=== PATIENT | female | born 2000 | race Caucasian/White ===

== ENCOUNTER 2019-04-09 19:35 | Inpatient (IN) | payer MEDICAID, SELFPAY ==
[2019-04-09] VITALS (27 sets, daily range): BP systolic 0–144; BP diastolic 0–89; PULSE 100–124; RESP 16–18; TEMP 36.8–37.1; BMI 28.1
[2019-04-09 21:15] LABS: Basophils % 0.2 %; Eosinophils # 0.1 10^3/uL (0.0-0.8); Eosinophils % 0.5 %; Hematocrit 37.6 % (37.0-47.0); Hemoglobin 12.7 g/dL (11.5-15.3); Lymphocytes # 2.9 10^3/uL (1.5-6.5); Mean Corpuscular HGB Conc 33.8 g/dL (30.0-36.0); Mean Corpuscular Hemoglobin 33.1 pg (28.0-34.0); Mean Corpuscular Volume 97.9 fL (81-99); Mean Platelet Volume 10.7 fL (7.4-10.4); Monocytes # 0.9 10^3/uL (0.2-0.9); Monocytes % 7.5 %; Neutrophils # 8.2 10^3/uL (1.8-8.0); Neutrophils % 67.5 %; Nucleated Red Blood Cells % 0 %; Platelet Count 250 10^3/cmm (130-400); Red Blood Count 3.84 10^6/uL (4.1-5.3); Red Cell Distribution Width 13.4 % (12.1-15.1); White Blood Count 12.2 10^3/uL (4.5-13.0)
[2019-04-09] MEDS: lactated ringers 1,000 ML 999 ML IV (21:35)
--- NOTE | 2019-04-09 22:04 | US_ITS ---
WS: [id number] ULTRASOUND OB LIMITED TECHNIQUE: Limited ultrasound examination of the fetus. CLINICAL INFORMATION: HEART TONES COMPARISON: None. FINDINGS: Cervix measures 3.4 cm Single interuterine gestation. presentation is cephalic Placental location is anterior. Placenta grade: 2 heart rate 176 BPM. Normal ASHLI Gestational age 40 weeks 4 days Biophysical profile 8 out of 8. breathin movement: 2 tone: 2 Amniotic fluid: 2 IMPRESSION Normal biophysical profile 8 out of 8
[2019-04-09 22:33] LABS: Amphetamines Screen Urine Negative (Negative); Barbiturates Screen Urine Negative (Negative); Benzodiazepines Screen Urine Negative (Negative); Cocaine Screen Urine Negative (Negative); Opiate Screen Urine Negative (Negative); PCP Screen Urine Negative (Negative); THC Screen Urine Negative (Negative)
[2019-04-09 22:42] LABS: Bilirubin Urine Neg (NEGATIVE); Blood Urine Neg (Negative); Glucose Urine UA Norm (Normal); Ketones Urine Negative (Negative); Leukocyte Esterase Urine Trace (Negative); Nitrate Urine Negative (Negative); Protein Urine Neg (Negative); Specific Gravity, Urine 1.015 (1.005-1.030); Urine Color Yellow (Yellow); Urobilinogen Urine Norm (Negative); pH Urine 6.5 (5-7)
--- NOTE | 2019-04-09 22:43 | PM.OBGYHP ---
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 She presents at 40-4/7 weeks gestation for cervical ripening and induction of labor secondary to postdates status. Her course has been uncomplicated with the exception of group B strep bacteriuria which was treated earlier in the and necessitates intrapartum antibiotic prophylaxis. Present Details : 1 Para: 0 Review of Systems Const: Denies: fever or chills Card: Denies: chest pain Resp: Denies: shortness of breath or wheezing : Denies: vaginal bleeding, vaginal discharge or pelvic pain Psych: Reports: anxiety Medications/Allergies Home Medications Medication Instructions Recorded Confirmed Last Taken Type [id number] fumarate-FA tab PO 04/09/19 04/08/19 22:30 History [] Allergies Allergy/AdvReac Type Severity Reaction Status Date / Time No Known Allergies Allergy Verified 03/22/19 10:04 [facility] DIESEL ENGINE MECHANIC Statuses (acute, chronic, etc) shown below reflect problem list status as previously entered and may not be historically accurate Medical History (Updated 04/09/19 @ 23:15 by Darlene Arcos MD) Group B streptococcal bacteriuria (Acute) Family History (Updated 04/09/19 @ 23:01 by Darlene Arcos MD) Mother Lung disease Asthma Family/Other Spina bifida Social History (Updated 04/09/19 @ 22:50 by Darlene Arcos MD) Smoking and tobacco status: never smoked Second hand smoke exposure: No Alcohol intake: never Substance/Drug Use: never Adopted: No Caregiver/support person: Yes Lives independently: Yes Household members: significant other Marital status: Single Number of children: 0 Number of grandchildren: 0 Highest education level completed: High School Graduate Current occupational status: employed Current occupation: Part-time [employer] History History 1 Term 0 Miscarriages/Ectopic 0 0 Living Children 0 Vitals/I&O/Wt Last Vital Signs Temp 98.2 F 04/09/19 21:56 Pulse 110 H 04/09/19 22:30 Resp 16 04/09/19 21:56 BP 137/85 04/09/19 22:30 04/09/19 04/09/19 04/09/19 06:59 14:59 22:59 Intake Total 416.25 / 416.25 Balance 416.25 / 416.25 Weight last 48 hrs Weight 67.585 kg Weight 67.585 kg Physical Exam Narrative: EXAM NARRATIVE: For complete physical examination please refer to her record. Const: COMMON NORMALS: no apparent distress, oriented x3, no limitations, healthy appearing, alert and well nourished : MANUAL OB EXAM: dilated fingertip (Per staff upon arrival), effaced (40%), station high and other (Vertex) Neuro: COMMON NORMALS: oriented x3 SENSORIUM/ORIENTATION: Yes alert Psych: COMMON NORMALS: mental status grossly normal, thought process normal, cooperative, affect normal and speech normal SPEECH: Yes normal speech MOOD & AFFECT: Yes anxious THOUGHT PROCESS: normal thought process Data : 04/09/19 20:15 Other Labs: Blood type: O+ Antibody screen: Negative Hemoglobin/hematocrit/platelets: 13.0/30 7.9/303, 28-week recheck on hemoglobin 11.2 Urine culture: Positive for group B strep (treated at the time) Hepatitis B surface antigen: Negative RPR: Negative Hepatitis C antibody: Negative Rubella: Immune HIV screen: Negative GC/Chlamydia: Negative/negative Cystic fibrosis carrier screen: Counseled and declined Quad screen: Negative 1 hour GTT: 112 Group B strep culture: Not done secondary to indication for treatment with the group B strep bacteriuria A&P Assessment and plan (1) Post-term , 40-42 weeks of gestation: Status: Acute Code(s): O48.0 - Post-term (2) Encounter for induction of labor: I had initially planned Cytotec cervical ripening. However, heart tones revealed some late decelerations initially which resolved with maternal position changes. Then there was a shift in the baseline to tachycardia. Patient has maintained good heart tone variability and has had accelerations as well. Mother was afebrile but was somewhat tachycardic secondary to anxiety. She is not anemic, and her vital signs are otherwise stable. A urine drug screen was also ordered to round out the evaluation. She has had some uterine activity as frequent as every 2 minutes. However, she denies feeling pain but rather tightening. A biophysical profile was ordered which was scored as 8 out of 8 very quickly. At this time we will proceed with cervical ripening via low-dose continuous Pitocin infusion starting at 1 milliunit/min and advancing to 2 milliunits/min as tolerated. Status: Acute Code(s): Z34.90 - Encounter for supervision of normal , unspecified, unspecified trimester (3) Group B Streptococcus carrier state affecting : Will begin intrapartum antibiotic prophylaxis with either spontaneous rupture of membranes or onset of active labor. Status: Acute Code(s): O99.820 - Streptococcus B carrier state complicating Attestations Medical Necessity Statement*: As patient is postdates status and has had features consistent with a category 2 heart rate tracing, and she has not yet begun labor let alone deliver, she will require inpatient hospitalization. Coding Level of Care Code Acute Marketing Analytics Specialist for [employer] Fwd Diagnoses Post-term , 40-42 weeks of gestation O48.0 Encounter for induction of labor Z34.90 Group B Streptococcus carrier state affecting O99.820
[2019-04-09 22:45] LABS: Add Urine Culture? No; Bacteria Urine 2+; Coarse Granular Casts Urine 0-4 /lpf
[2019-04-09] MEDS: oxytocin 30 UNIT/500 ML BAG IV (23:04)
[2019-04-10] VITALS (125 sets, daily range): BP systolic 0–159; BP diastolic 0–93; PULSE 81–130; RESP 16–18; TEMP 36.9–37.1; O2SAT 93–98
[2019-04-10] MEDS: dextrose 5%-lactated ringers 1,000 ML 125 ML IV ×2 (02:05→19:43)
[2019-04-10] MEDS: lactated ringers 1,000 ML 999 ML IV ×2 (05:19→19:43)
[2019-04-10] MEDS: acetaminophen 325 mg Tablet 650 MG PO (07:25)
--- NOTE | 2019-04-10 07:29 | P.PN_ITS ---
CARDIOLOGY CONSULTANTS Subjective Subjective: Interval history: Patient had a fluid bolus last evening and had 1 to 2 milliunits/min of Pitocin continuously throughout the late night and ferry engineer hours. A few hours into the 2 milliunits/min infusion rate of the Pitocin patient had a decrease in variability of the heart rate and some questionable decelerations and the heart rate. This resolved with discontinuation of the Pitocin. Patient stated that she was able to feel the contractions and rates them at a 3 out of 10 but was able to get rest. She continues to contract on her own albeit infrequently and irregularly. Labor: Pain Control: tolerating well Dilation (cm): 1 Effacement (%): 40 Station: -3 Amniotic Membrane Status: Intact Monitor Mode: External Contraction Pattern: Irregular Contraction Intensity: Moderate Status: Category l Vitals/I&O/Wt Last Vital Signs Temp 98.5 F 04/10/19 04:46 Pulse 109 H 04/10/19 07:21 Resp 16 04/10/19 04:46 BP 120/77 04/10/19 07:21 04/09/19 04/10/19 04/10/19 22:59 06:59 14:59 Intake Total 510.00 / 510.00 760.334 / 1270.334 Balance 510.00 / 510.00 760.334 / 1270.334 Weight last 48 hrs Weight 67.585 kg Weight 67.585 kg Data : 04/09/19 20:15 A&P Additional A&P Information We discussed having her eat some breakfast and shower if she would like. Given the category 1 monitoring tracing, we may proceed with a dose of Cytotec 25 mcg placed vaginally 1 time. She will be monitored for a period of time and then may ambulate in the halls if heart rate tracing is reassuring. We discussed the mechanism of action of the Cytotec and potential side effects. We also discussed timing for initiation of antibiotics for group B strep prophylaxis. Attestations Medical Necessity Statement*: As patient has not yet delivered and has a post dates status she will require continued hospitalization. Coding Level of Care Code Acute Self Pay Specialist for [employer]
--- NOTE | 2019-04-10 07:50 | PC.NURSE ---
Patient IV covered so patient can shower.
[2019-04-10] MEDS: miSOPROStol 100 mcg tablet 25 MCG VAGINAL ×2 (08:56→13:26)
[2019-04-10] MEDS: fentaNYL 50 mcg/mL INJ 2mL IVP (18:57)
--- NOTE | 2019-04-10 19:20 | PM.OBGYPN ---
EMERGENCY COMMUNICATIONS DISPATCHER Subjective Subjective: Interval history: Patient had a dose of Cytotec this morning vaginally and then had a second dose of Cytotec vaginally at 1:00 this afternoon. After the second dose she was patti every minute to minute and a half 4 hours after it was placed. She was rating her pain at a 7 out of 10. After the first dose of Cytotec she was 1-1/2 cm dilated and 50% effaced and still -3 station. After the second dose of Cytotec she had made no cervical change. heart rate tracing has remained category 1 all day. Labor: Dilation (cm): 1 Effacement (%): 50 Station: -3 Amniotic Membrane Status: Intact Monitor Mode: External Contraction Pattern: Regular Contraction Intensity: Moderate Status: Category l Vitals/I&O/Wt Last Vital Signs Temp 98.4 F 04/10/19 16:39 Pulse 93 04/10/19 17:32 Resp 16 04/10/19 18:57 BP 131/75 04/10/19 17:32 04/10/19 04/10/19 04/10/19 06:59 14:59 22:59 Intake Total 760.334 / 2200.223 4751.333 / 1608.333 Balance 760.334 / 0377.521 6576.333 / 1608.333 Weight last 48 hrs Weight 67.585 kg Weight 67.585 kg Physical Exam Narrative: EXAM NARRATIVE: heart tones have been category 1 with moderate variability, accelerations, no decelerations and a normal baseline. Contractions have most recently been every 1 to 2 minutes and increasing in intensity with the patient rating them a 7 out of 10. : MANUAL OB EXAM: dilated 2 cm, effaced 75%, station -2 and other (Vertex, not ballotable) Data : 04/09/19 20:15 A&P Assessment and plan (1) Rupture of membranes with meconium present: Patient cervical exam done 4 hours after placement of the second dose of Cytotec revealed cervix to be 1-1/2 cm dilated, 50% effaced, -3 station, vertex and with a medium to firm consistency cervix. Since she was patti too frequently to place another dose of Cytotec and was not ripe enough to try escalating dose of Pitocin, we considered placement of a cervical bulb. Family members expressed concern as to why she was not being taken to section at this point in time for failure to progress. Both her nurse and I explained that cervical ripening, especially in a primiparous patient can take quite a bit of time and that there was no sign of baby's intolerance to the cervical ripening or contractions at this time. We explained that sections have risks as well and that patient has not had an adequate trial of labor to determine whether or not she would dilate. After a detailed discussion on the cervical bulb and the procedure of placing it, patient was given the option of receiving a fluid bolus and taking a break to allow her contractions to either get stronger on their own enough to cause cervical dilation or to have another dose of Cytotec if they ever became less frequent versus placement of the cervical bulb. Patient chose placement of the cervical bulb. She requested IV pain medication prior to the placement of the cervical bulb, so a 25 mcg dose of IV fentanyl was given. An hour and a half had elapsed since she had had a cervical exam, and her contractions had continued at a 7 out of 10 no less frequent than every 3 minutes with most of them being every minute to minute and a half. Recheck of her cervix when preparing for cervical bulb placement found it to be 2 cm dilated, soft, 75% effaced, -2 station and vertex and not ballotable. At that time we discussed amniotomy with commencement of group B strep protocol for intrapartum antibiotic prophylaxis as well as preparation for an epidural. Patient was agreeable to amniotomy, and it was performed and productive of a moderate amount of meconium stained fluid. Patient is currently receiving her fluid bolus en route to an epidural. Status: Acute Code(s): O77.0 - Labor and delivery complicated by meconium in amniotic fluid Attestations Medical Necessity Statement*: As patient has not yet delivered and is postdates and has undergone amniotomy, she will continue to need inpatient hospitalization. Coding Level of Care Code Acute Senior Relationship Manager for [employer] Diagnoses Rupture of membranes with meconium present O77.0
[2019-04-10] MEDS: ampicillin 2,000 MG in sodium chloride 0.9% (plus) 50 ML 100 MG IV (19:42)
[2019-04-10] MEDS: ampicillin 1,000 MG in sodium chloride 0.9% (plus) 50 ML 100 MG IV (23:50)
[2019-04-11] VITALS (34 sets, daily range): BP systolic 0–150; BP diastolic 0–87; PULSE 87–133; RESP 16; TEMP 36.4–37.2; O2SAT 95–98
--- NOTE | 2019-04-11 03:51 | PM.DELIVERY ---
 Delivery Note: Date of delivery: 04/11/19 Pre-Delivery Course: Patient arrived the evening of 04/09/2019 for postdates cervical ripening and induction of labor at 40-4/7 weeks gestation. Patient had a few late decelerations shortly after arrival, and these resolved with maternal position changes. Nonetheless, that evening we proceeded with low-dose continuous Pitocin infusion for cervical ripening instead of Cytotec. After a few hours of the Pitocin at 2 milliunits/min there were some decelerations and potential shifts in the baseline heart rate which prompted discontinuation of the Pitocin and observation. Prior to starting the Pitocin patient had a biophysical profile which was 8 out of 8 fairly rapidly. Patient was 1 cm dilated and 40% effaced the morning of 04/10/2019. 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 At that point patient took a break and ate breakfast. She had a reassuring heart rate tracing, therefore, we proceeded with a 25 mcg dose of Cytotec vaginally. Her contractions increased in frequency and intensity, and she was 1-1/2 cm dilated and 50% effaced 4 hours after administration of the first dose of Cytotec. As her contractions were mild and at least 3 minutes apart we proceeded with a second dose of Cytotec 25 mcg vaginally. 4 hours after placement of that dose she was unchanged with a cervix 1-1/2 cm dilated, 50% effaced, medium consistency and -3 station. At this point we had discussed waiting to see if her contractions would become less frequent such that she could receive a third dose of Cytotec versus placement of a cervical bulb if contractions continued frequently without cervical change. Patient decided on the cervical bulb. Approximately an hour and a half had elapsed since cervical exam done 4 hours after placement of the second dose of Cytotec, and, upon reexamination just prior to placement of the cervical bulb, patient was found to be 2 cm dilated, 75% effaced and -2 station with the head not ballotable. At that time she underwent amniotomy which was productive of a moderate amount of meconium stained fluid. This was at 1908 on 04/10/2019. She requested an epidural, received it and became comfortable. Intrapartum antibiotic prophylaxis for the group B strep was begun shortly after amniotomy. Once she was comfortable and had had her Mcgregor catheter placed after the epidural, she was found to be 3 cm dilated, 75% effaced and -2 station. She was patti every 1-1/2 to 2 minutes on her own. She was able to rest for brief periods of time and was then 5 cm at approximately 2315 and was then 7 cm dilated at 0045 on 04/11/2019. She was then found to be completely dilated at 2:30 AM. She had received at least 2 doses of antibiotics per the group B strep protocol prior to delivery. Delivery: We began the active portion of the second stage of her labor at 2:35 AM, and after a 59-minute active portion of the second stage patient delivered a viable female . Head was straight OA. Bulb suctioning was done upon delivery of baby's head and then of baby's body. Baby had a nuchal cord x1 which was loose and easily manually reduced on the perineum. Baby was placed on maternal abdomen while the cord was quickly clamped by myself and cut by the father the baby. Cord blood was obtained. Baby was taken to the warmer for DeLee suctioning which was productive of 4 mL's of meconium fluid. Gentle traction was placed on the cord, and intravenous Pitocin was begun in routine doses. The placenta delivered at 3:38 AM and appeared to be intact and was meconium stained. Fundal massage revealed an initially boggy uterus which responded to the fundal massage and Pitocin. Cervix and perineum were inspected, and a distal posterior vaginal laceration which was in the midline and first-degree was noted. She required no repairs and was otherwise intact. Post-Delivery Status: Baby had an initial of 5 at 1 minute and then had an of 10 at 5 minutes and remained at a 10 at 10 minutes. She required only DeLee suctioning. Mother had a slight increase in her bleeding, and her fundus was found to be somewhat boggy. Fundal massage resulted in a firmer uterus and expulsion of a few small clots. We then gave 800 mcg of Cytotec rectally in addition to the intravenous Pitocin. Mother and baby were stable. EBL approximately 300 mL. A&P Assessment and plan (1) Rupture of membranes with meconium present: Status: Acute Code(s): O77.0 - Labor and delivery complicated by meconium in amniotic fluid (2) Normal vaginal delivery of first : Routine orders Status: Acute Code(s): O80 - Encounter for full-term uncomplicated delivery (3) Obstetric vaginal laceration without perineal laceration: No repair needed Status: Acute Code(s): O71.4 - Obstetric high vaginal laceration alone Coding Level of Care Code Acute Technology Project Manager for [employer] Diagnoses Rupture of membranes with meconium present O77.0 Normal vaginal delivery of first O80 Obstetric vaginal laceration without perineal laceration O71.4
[2019-04-11] MEDS: miSOPROStol 200 mcg Tablet 800 MCG PR (03:52)
[2019-04-11] MEDS: benzocaine-menthol 78 gm Canister 1 SPRAY TOPICAL (06:59)
[2019-04-11] MEDS: lanolin oint 7 gm 1 APPLIC TOPICAL (06:59)
[2019-04-11] MEDS: prenatal vitamin Capsule 1 CAP PO (08:09)
[2019-04-11 17:23] LABS: Hematocrit 33.6 % (37.0-47.0); Hemoglobin 11.2 g/dL (11.5-15.3); Mean Corpuscular HGB Conc 33.3 g/dL (30.0-36.0); Mean Corpuscular Hemoglobin 32.7 pg (28.0-34.0); Platelet Count 217 10^3/cmm (130-400); Red Blood Count 3.43 10^6/uL (4.1-5.3); Red Cell Distribution Width 12.7 % (12.1-15.1); White Blood Count 17.2 10^3/uL (4.5-13.0)
--- NOTE | 2019-04-12 07:41 | P.DS_ITS ---
Discharge Providers DRAGLINE OPERATOR Date of Admission: 04/09/19 19:35 Date of Discharge: 04/12/19 Attending Provider at Admission: Darlene Arcos MD Attending Provider at Discharge: Darlene Arcos MD Primary Care Provider: Darlene Arcos MD Diagnoses at Discharge Discharge Diagnosis (1) Normal vaginal delivery of first : Status: Acute Problem details: day 1, ready for discharge to board with baby (2) Obstetric vaginal laceration without perineal laceration: Status: Acute Problem details: Patient reports no pain Reason for Visit Reason for Visit: Reason For Visit: labor Hospital Course Hospital Course: Patient arrived the evening of 04/09/2019 for cervical ripening and induction of labor. That evening and into the sample collector hours she received a low dose, 1 to 2 milliunits/min of Pitocin continuous infusion. The next morning she had had minimal cervical change. However, the monitoring strip was a category 1 and so we began Cytotec. After 2 doses of Cytotec patient was patti very irregularly and with increasing intensity. At 2 cm dilation and over 75% effaced -2 station we performed amniotomy which was productive of meconium fluid. 8-1/2 hours later after epidural anesthesia and an hour long active portion of the second stage of labor, she delivered a viable female weighing 7 pounds 5 ounces with Apgars of 5 at 1 minute and 10 from there on out. She had an intact perineum and sustained only a first- degree vaginal laceration which did not require repair. She had minimal to moderate blood loss. Postdelivery day 1 she is feeling better and is taking only ibuprofen for cramping, especially with breast-feeding. She plans to start the progesterone only pill after her visit in 6 weeks. Discharge Summary: As above, patient is ready for discharge. Information Peripartum Data: Infant Delivery Method: Vaginal Physical Exam Narrative: EXAM NARRATIVE: She is afebrile and is ambulating well Resp: COMMON NORMALS: normal respiratory effort and clear to auscultation bilaterally AUSCULTATION: clear to auscultation bilaterally Cardio: COMMON NORMALS: regular rate, regular rhythm and peripheral pulses 2+ throughout; negative for no murmurs and negative for no rub RATE: regular rate RHYTHM: regular rhythm PERIPHERAL PULSES: pulses 2+ throughout : UTERUS PALPATION: Yes other OB (Fundus is firm and 1 to 2 fingerbreadths below the umbilicus and is nontender) Extremity: COMMON NORMALS: normal to inspection and no clubbing, cyanosis or edema Psych: COMMON NORMALS: mental status grossly normal, thought process normal, cooperative, affect normal, speech normal and activity/motor behavior normal SPEECH: Yes normal speech THOUGHT PROCESS: normal thought process Urinary Catheter Management^: Mcgregor: Cath Placed During This Visit: no Discharge Data Data Completed and Pending: Completed Studies During Hospitalization Category Date Time Status US OB BPP w o NST 71263 Stat Ultrasound 04/09/19 22:04 Completed Labs from last 24 hours 04/11/19 16:38 WBC 17.2 H RBC 3.43 L Hgb 11.2 L Hct 33.6 L MCV 98.0 MCH 32.7 MCHC 33.3 RDW 12.7 Plt Count 217 MPV 10.0 Vitals: Last Vital Signs Temp 97.6 F 04/11/19 21:27 Pulse 87 04/11/19 21:27 Resp 16 04/11/19 21:27 BP 117/72 04/11/19 21:27 Pulse Ox 98 04/11/19 21:27 Discharge Plan Discharge Patient Disposition: Home, Self-Care Condition: Stable Prescriptions: New ibuprofen 800 mg Tablet 800 mg PO TID Qty: 40 RF: 0 Continued 28-800 mg-mcg Tablet 1 tab PO DAILY RF: 0 Discharge Orders: Discharge Order (Routine); Ordered 04/12/19 Ordered By: Darlene Arcos Referrals: Darlene Arcos MD [Primary Care Provider] - 6 Weeks Discharge Diet: Usual diet Discharge Activity: Resume usual activity Patient Instructions: OB Home Care Discharge Attestations DRAGLINE OPERATOR Time Spent in Discharge Care*: less than 30 min Specific Discharge Activities: Specific discharge activities: educating and/or supporting family/caregiver, documenting/other paperwork and evaluating patient/reviewing data Status at Discharge: Cognitive status at discharge: cognitively intact , Behavioral status at discharge: cooperative , Functional status at discharge: independent ambulation Overall status at discharge: patient is progressing back to baseline Coding Level of Care Code Acute Solar Photovoltaic Electrician for [employer] Fwd Diagnoses Normal vaginal delivery of first O80 Obstetric vaginal laceration without perineal laceration O71.4
[2019-04-12] MEDS: prenatal vitamin Capsule 1 CAP PO (10:33)
[2019-04-12] MEDS: docusate sodium 100 mg Capsule PO (10:34)
[2019-04-12 11:20] VITALS: BP 126/88; PULSE 86; RESP 17; TEMP 36.8; O2SAT 96
== END 2019-04-12 11:30 | disposition home or self-care (01) | DRG 806 ==
PROVIDERS: Admitting Provider Family Medicine; Family Provider Family Medicine; PCP Family Medicine; Visit Provider Family Medicine
DX: O48.0 Post-term pregnancy (principal); O71.4 Obstetric high vaginal laceration alone; Z37.0 Single live birth; Z3A.40 40 weeks gestation of pregnancy; O77.0 Labor and delivery complicated by meconium in amniotic fluid
CPT/HCPCS: 12345; 36415; 51702; 59409; 76819; 80307; 81001; 85025; 85027; 98960; A9270; J0290; J2795; J3010

== ENCOUNTER 2021-02-25 18:00 | Outpatient (CLI) | payer BC, SELFPAY ==
[2021-02-25 18:00] VITALS: BMI 24.9
[2021-02-25 18:19] VITALS: BP 112/76; PULSE 111
[2021-02-25 18:30] VITALS: RESP 16
[2021-02-25 19:44] VITALS: RESP 16
== END 2021-02-25 19:05 | disposition home or self-care (01) ==
LOC: OPOB 18:12 → OBGYN 18:13
PROVIDERS: Family Provider Family Medicine; PCP Family Medicine; Visit Provider Family Medicine
DX: O99.891 Other specified diseases and conditions complicating pregnancy (principal); R10.9 Unspecified abdominal pain
CPT/HCPCS: 99211

== ENCOUNTER 2021-04-07 11:05 | Outpatient (CLI) | payer BC, MEDICAID, SELFPAY ==
[2021-04-07 11:05] VITALS: BMI 26.6
[2021-04-07 11:28] VITALS: BP 128/67; PULSE 127
[2021-04-07 11:45] VITALS: BP 115/67; PULSE 114; RESP 17
[2021-04-07 11:59] VITALS: BP 115/62; PULSE 121
[2021-04-07 12:14] VITALS: BP 107/58; PULSE 109
[2021-04-07 12:29] VITALS: BP 108/60; PULSE 110
[2021-04-07 12:29] LABS: Glucose Urine UA Norm (Normal); Protein Urine Neg (Negative); Specific Gravity, Urine 1.015 (1.005-1.030); Urine Appearance Clear (CLEAR); Urine Color Yellow (Yellow); pH Urine 5 (5-7)
[2021-04-07 12:30] LABS: Bilirubin Urine Neg (Negative); Blood Urine Neg (Negative); Ketones Urine 1+ (Negative); Leukocyte Esterase Urine Negative (Negative); Nitrate Urine Negative (Negative); Urobilinogen Urine Norm (Negative)
[2021-04-07 12:31] LABS: WBC Urine 15-25 /hpf (0-5)
[2021-04-07 12:32] LABS: Add Urine Culture? No; Bacteria Urine 2+ /hpf; Squamous Epithelial Cell Urine 15-25 /hpf (0-5)
[2021-04-07 12:45] VITALS: BP 104/57; PULSE 105
== END 2021-04-07 12:55 | disposition home or self-care (01) ==
LOC: OPOB 11:09 → OBGYN 11:20
PROVIDERS: PCP Family Medicine; Visit Provider Family Medicine
DX: O26.899 Other specified pregnancy related conditions, unspecified trimester (principal); Z3A.00 Weeks of gestation of pregnancy not specified; M54.9 Dorsalgia, unspecified; R10.9 Unspecified abdominal pain
CPT/HCPCS: 81001; 99211

== ENCOUNTER 2021-05-26 05:05 | Outpatient (CLI) | payer BC, MEDICAID, SELFPAY ==
[2021-05-26] VITALS (39 sets, daily range): BP systolic 112–130; BP diastolic 65–74; PULSE 106–133; RESP 18; TEMP 36.3–36.8; O2SAT 93–98; BMI 28.9
[2021-05-26 05:30] LABS: Glucose Urine UA Norm (Normal); Ketones Urine Negative (Negative); Protein Urine Neg (Negative); Urine Appearance Hazy (CLEAR); Urine Color Yellow (Yellow); pH Urine 7 (5-7)
[2021-05-26 05:31] LABS: Bilirubin Urine Neg (Negative); Blood Urine Trace (Negative); Leukocyte Esterase Urine 2+ (Negative); Nitrate Urine Negative (Negative); Urobilinogen Urine Norm (Negative)
[2021-05-26 05:32] LABS: Add Urine Culture? No; Bacteria Urine 3+ /hpf; Squamous Epithelial Cell Urine 25-40 /hpf (0-5); WBC Urine >100 /hpf (0-5)
--- NOTE | 2021-05-26 05:43 | USR_ITS ---
PROCEDURE INFORMATION: Exam: US Retroperitoneal; Complete; Kidneys and Bladder Exam date and time: 05/26/2021 5:43 AM Age: 21 years old Clinical indication: Abdominal pain; Acute; ; Additional info: Left flank pain, blood in urine TECHNIQUE: Imaging protocol: Real-time ultrasound of the retroperitoneum with image documentation. Complete exam focused on the kidneys and bladder. COMPARISON: US OB >= 14 weeks fetus [id number] 03/09/2021 1:16 PM FINDINGS: Right kidney: Mild right hydronephrosis with mild to moderate left hydronephrosis and no renal stones. Possible related hydronephrosis from enlarged uterus. 11.7 x 5.7 x 5.0 cm right kidney with 0.7 cm right renal cortex. Left kidney: 12.0 x 4.9 x 7.1 cm left kidney with 1.5 cm left renal cortex. Aorta: The aorta is not visualized. Urinary bladder: Urinary bladder collapse and not visualized. Other findings: Cephalic presentation. US/US renal BI* [id number] IMPRESSION: 1. Mild right hydronephrosis with mild to moderate left hydronephrosis with no renal stones. Possible related hydronephrosis from enlarged uterus. 2. Cephalic presentation. 3. Urinary bladder collapsed and not visualized.
[2021-05-26] MEDS: lactated ringers 1,000 ML 999 ML IV (06:09)
[2021-05-26] MEDS: cefTRIAXone 1,000 MG in sodium chloride 0.9% (plus) 50 ML 100 MG IV (06:09)
[2021-05-26] MEDS: HYDROcodone-acetaminophen 5-325 mg Tablet 1 TAB PO (06:09)
== END 2021-05-26 07:38 | disposition home or self-care (01) ==
LOC: OPOB 05:06 → OBGYN 05:06
PROVIDERS: PCP Family Medicine; Visit Provider Family Medicine
DX: O26.899 Other specified pregnancy related conditions, unspecified trimester (principal); Z3A.00 Weeks of gestation of pregnancy not specified; R10.9 Unspecified abdominal pain
CPT/HCPCS: 59025; 76770; 81001; 99211; J0696

== ENCOUNTER 2021-05-27 21:49 | Observation (INO) | payer BC, MEDICAID, SELFPAY ==
[2021-05-27] VITALS (43 sets, daily range): BP systolic 110–140; BP diastolic 56–81; PULSE 122–208; RESP 18; TEMP 36.9; O2SAT 93–98; BMI 24.9
[2021-05-27] MEDS: ondansetron 2 mg/ML SDV 2 mL 4 MG IVP (21:40)
[2021-05-27] MEDS: HYDROcodone-acetaminophen 5-325 mg Tablet PO (21:47)
[2021-05-27 21:49] LABS: Basophils # 0.1 10^3/uL (0.0-0.1); Basophils % 0.3 %; Eosinophils # 0.1 10^3/uL (0.0-0.8); Eosinophils % 0.6 %; Hematocrit 33.9 % (37.0-47.0); Hemoglobin 11.2 g/dL (11.5-15.3); Lymphocytes % 6.5 %; Mean Corpuscular Hemoglobin 32.5 pg (28.0-34.0); Mean Corpuscular Volume 98.3 fl (81-99); Mean Platelet Volume 9.7 fL (7.4-10.4); Monocytes # 1.5 10^3/uL (0.2-0.9); Monocytes % 9.9 %; Neutrophils # 11.97 10^3/uL (1.8-7.7); Neutrophils % 82.2 %; Nucleated Red Blood Cells % 0 %; Platelet Count 216 10^3/cmm (130-400); Red Blood Count 3.45 10^6/uL (4.1-5.3); Red Cell Distribution Width 13.6 % (12.1-15.1); White Blood Count 14.6 10^3/uL (4.0-10.0)
[2021-05-27] MEDS: cefTRIAXone 1,000 MG in sodium chloride 0.9% (plus) 50 ML 100 MG IV (21:50)
[2021-05-27] MEDS: lactated ringers 1,000 ML 999 ML IV (21:50)
[2021-05-27 22:02] LABS: Add Urine Culture? No; Add Urine Microscopic? YES; Bacteria Urine 2+ /hpf; Bilirubin Urine Neg (Negative); Blood Urine Neg (Negative); Glucose Urine UA Norm (Normal); Ketones Urine Negative (Negative); Leukocyte Esterase Urine 2+ (Negative); Nitrate Urine Negative (Negative); Protein Urine Neg (Negative); RBC Urine 0-4 /hpf (0-2); Specific Gravity, Urine 1.015 (1.005-1.030); Urine Appearance SL Hazy (CLEAR); Urine Color Yellow (Yellow); Urobilinogen Urine 1 mg/dL (Negative); WBC Urine 40-55 /hpf (0-5); pH Urine 5 (5-7)
[2021-05-27 22:07] LABS: Alanine Aminotransferase 15 U/L (0-33); Albumin Level 3.7 g/dL (3.5-5.2); Alkaline Phosphatase 151 IU/L (35-105); Aspartate Amino Transferase 19 U/L (0-32); Blood Urea Nitrogen 4 mg/dL (6-20); Calcium 9.1 mg/dL (8.5-10.5); Carbon Dioxide 17 mmol/L (22-29); Chloride 105 mmol/L (98-107); Globulin 2.6 g/dL (1.3-4.6); Glomerular Filtration Rate 199.6 mL/min (90-130); Glucose 113 mg/dL (65-115); Osmolality Calculated 282 mOsm/kg (285-295); Sodium 137 mmol/L (136-145); Total Bilirubin 1.3 mg/dL (0.15-1.2); Total Protein 6.3 g/dL (6.6-8.7)
[2021-05-27 22:08] LABS: Anion Gap 18.8 (5-19); Potassium 3.8 mmol/L (3.5-5.1)
[2021-05-27] MEDS: terbutaline 1 mg/mL INJ 0.25 MG SUBCUT (23:11)
[2021-05-27] MEDS: TRAMadol 50 mg Tablet PO (23:12)
[2021-05-27] MEDS: lactated ringers 1,000 ML 150 ML IV (23:20)
[2021-05-28] VITALS (72 sets, daily range): BP systolic 91–144; BP diastolic 47–72; PULSE 121–145; RESP 18–20; TEMP 36.2–37.7; O2SAT 79–98
[2021-05-28] MEDS: promethazine 25 mg/mL SDV 1 mL IM ×2 (01:08→12:14)
[2021-05-28] MEDS: morphine 4 mg/mL SDV 1 mL IVP ×2 (01:11→04:14)
--- NOTE | 2021-05-28 01:14 | USR_ITS ---
PROCEDURE INFORMATION: Exam: US Retroperitoneal; Complete; Kidneys and Bladder Exam date and time: 05/28/2021 1:14 AM Age: 21 years old Clinical indication: Pain and condition or disease; Kidney or ureter condition; Hydronephrosis; Abdominal pain; Flank; Left; ; Additional info: Left hydronephrosis. Patient reportedly 32 weeks . TECHNIQUE: Imaging protocol: Real-time ultrasound of the retroperitoneum with image documentation. Complete exam focused on the kidneys and bladder. COMPARISON: US renal BI* [id number] 05/26/2021 6:01 AM FINDINGS: The right kidney measures 11.3 cm in length. The left kidney measures 10.9 cm in length. There is mild bilateral hydronephrosis, similar to slightly more prominent than on the recent exam. Significance uncertain. This appearance could be secondary to hydronephrosis of . Other possibilities might include pyelonephritis and occult ureteral calculi. Please correlate clinically. The ureters are poorly visualized, but the upper ureters are probably mildly prominent bilaterally. No definite perinephric fluid. The renal parenchymal thickness and echogenicity are within normal limits. There is no sonographically visible renal calculus, mass, or cyst. The urinary bladder is essentially empty, and cannot be adequately visualized/evaluated at this time. US/US renal BI* [id number] IMPRESSION: 1. Mild bilateral hydronephrosis, similar to slightly more prominent than on the recent exam. See above discussion. 2. Other details/findings discussed above.
[2021-05-28] MEDS: HYDROcodone-acetaminophen 5-325 mg Tablet PO ×3 (02:20→12:13)
[2021-05-28] MEDS: lactated ringers 1,000 ML 150 ML IV ×2 (06:43→15:02)
--- NOTE | 2021-05-28 09:01 | PM.HP ---
Providers/Chief Complaint Admitting Physician: Alesha Zavala MD Primary Care Provider: Darlene Arcos MD Chief Complaint: kidney issues History of Present Illness Molly Peres is a 21 year old female G2, P1 at 32 weeks gestation who presented complaining of left lower back pain radiating around to the front. She was rating the pain 10 out of 10 and did appear to be in distress upon admission. She had taken Tylenol at home with no relief. In the hospital her pain was not relieved by hydrocodone or tramadol. The pain was so bad it was causing her to vomit frequently, despite Zofran. She denied any diarrhea or constipation. She had a fever at home the day she came in and she measured at 102. She has been afebrile here since admission. She had similar symptoms the night before and presented to triage then. At that time her urinalysis did appear to be contaminated but also had greater than 100 white blood cells so she was given a dose of Rocephin to cover for infection. Her renal ultrasound showed mild bilateral hydronephrosis consistent with . She was given 1 dose of hydrocodone/APAP 5/325mg with good relief of her pain. She was discharged home with oral antibiotics. She presented back to L&D the next day (last night) with worsening pain, vomiting, and reported fever. Her WBC is not significantly elevated considering . Her repeat urinalysis still seemed contaminated but did have fewer white blood cells. Repeat renal ultrasound did not show much change in the bilateral hydronephrosis. This repeat ultrasound was done with the patient lying on her right side to take the uterus off the left/afffected side. No calculi were visualized. The pt was given IVF, norco and morphine overnight. I saw her in the morning and she was lightly sleeping but easily arousable and in obvious pain still. Review of Systems Const: Reports: fever(s) (at home yesterday); Denies: body aches Eyes: Denies: change in vision, blurry vision or blind spots ENMT: Denies: throat pain, enlarged tonsils, ear or mastoid pain or nasal congestion Card: Denies: chest pain, irregular heart rhythm or dyspnea on exertion Resp: Denies: dyspnea, productive cough or pain on inspiration GI: Reports: abdominal pain (LLQ), nausea and vomiting; Denies: hematemesis, diarrhea, constipation, hematochezia or melena : Reports: flank pain and pelvic pain; Denies: difficulty voiding, dysuria, urinary frequency or urinary urgency Musc: Reports: back pain; Denies: extremity pain or joint redness Skin/Breast: Denies: rash Neuro: Denies: Slurred speech present or seizure-like activity Psych: Denies: anxiety or depression Endo: Denies: polyuria Lizandro/Lymph: Denies: easy bruising or easy bleeding All/Imm: Denies: urticaria Medications/Allergies Home Medications Medication Instructions Recorded Confirmed Last Taken Type vit no.133-ferrous 1 tab PO DAILY 04/09/19 05/27/21 05/27/21 History fumarate 28 mg-folic acid 800 mcg tablet () Tylenol 500 mg PO PRN PRN 05/26/21 05/27/21 05/27/21 20:00 History Allergies Allergy/AdvReac Type Severity Reaction Status Date / Time No Known Allergies Allergy Verified 05/27/21 21:48 PFSH Acute PFSH: Medical History (Updated 05/28/21 @ 09:12 by Alesha Zavala MD) Group B streptococcal bacteriuria Family History (Updated 04/09/19 @ 23:01 by Darlene Arcos MD) Mother Lung disease Asthma Family/Other Spina bifida Social History (Updated 04/09/19 @ 22:50 by Darlene Arcos MD) Smoking and tobacco status: never smoked Second hand smoke exposure: No Alcohol intake: never Adopted: No Caregiver/support person: Yes Lives independently: Yes Household members: significant other Marital status: Single Number of children: 0 Number of grandchildren: 0 Highest education level completed: High School Graduate Current occupational status: employed Current occupation: Part-time [employer] Female Reproductive History: : 2 Vitals/I&O/Wt Last Vital Signs Temp 99.3 F 05/28/21 06:44 Pulse 130 H 05/28/21 08:50 Resp 19 H 05/28/21 04:14 BP 108/57 05/28/21 08:50 Pulse Ox 95 05/28/21 03:07 05/27/21 05/28/21 05/28/21 22:59 06:59 14:59 Intake Total 1050 / 1050 1500 / 2550 Output Total 750 / 750 Balance 1050 / 1050 750 / 1800 Weight last 48 hrs Weight 59.874 kg Physical Exam Const: GENERAL APPEARANCE: cooperative and in distress (tired with grimace); not comfortable HENMT: HEAD & SCALP: normal to inspection Eye: GENERAL EYE: appearance normal, both eyes and all related structures Resp: AUSCULTATION: clear to auscultation bilaterally Cardio: RATE: tachycardic RHYTHM: regular rhythm GI: PALPATION: Yes Soft to palpation (gravid), No Tenderness to palpation present (GI) and No Guarding due to palpation present (GI) Extremity: NARRATIVE EXTREMITY EXAM: No calf tenderness, no edema Data : 05/27/21 21:27 05/27/21 21:27 A&P Assessment and plan (1) Acute left flank pain: Status: Acute (2) Bilateral hydronephrosis: Given her degree of pain I suspect ureterolithiasis. There was nothing evident on renal ultrasound. Despite the Bessie and morphine the patient continues to be in a significant amount of pain. We will go ahead and order MRI for further evaluation. Consider urology consult pending MRI results. 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
--- NOTE | 2021-05-28 09:39 | MR_ITS ---
WS: [id number] MRI OF THE ABDOMEN WITHOUT GADOLINIUM ENHANCEMENT. INDICATION: RIGHT flank pain TECHNIQUE: Coronal T2, axial T2, axial T1, dual Echo, coronal 2-D fiesta, axial T1 fat sat, coronal S TIR. COMPARISON: Ultrasound May 28, 2021 FINDINGS: Somewhat limited examination due to motion artifact and lack of breath-hold technique Moderate bilateral hydronephrosis with ureterectasis extending into the pelvis. Pelvic varicosities. Ureterectasis likely due to ureteral compression from enlarged gravid uterus. Appendix is not visuali zed. Small and large bowel displaced peripherally due to late term gestation. No edema in the lower b ack or flank soft tissues. Slightly hydropic gallbladder. No visualized cholelithiasis. Incidental small RIGHT hepatic cyst. Gravid uterus compresses the IVC. Normal caliber abdominal aorta . Urine distended bladder. Normal portal vein and splenic vein. No inflammatory stranding or edema ab out the kidneys. Appendix is not visualized but no evidence of acute appendicitis. Urine distended bl adder.Umbilical cord loosely draped across the LEFT neck and crosses in front of the fetus. Rec ommend interval follow-up with ultrasound. anatomy appears grossly normal where visualized. No hydrocephalus. MR/MR abdomen wo con [id number] IMPRESSION: Somewhat limited examination due to motion artifact and lack of екатерина ath-hold technique 1. Symmetric moderate bilateral hydronephrosis with ureterectasis extending in to the pelvis likely due to pelvic ureteral compression from enlarged uterus. N o visualized obstructing calculi. 2. No perinephric edema or perinephric inflammatory stranding. 3. Appendix is not visualized but no evidence of acute appendicitis. 4. Gravid uterus with pelvic varicosities. 5. Fluid distended gallbladder otherwise normal in appearance. No visualized c holelithiasis 6. Umbilical cord loosely draped across the LEFT neck and crosses in fro nt of the fetus. Recommend interval follow-up with ultrasound.
[2021-05-28 10:20] LABS: Bilirubin Urine Neg (Negative); Blood Urine Neg (Negative); Glucose Urine UA Norm (Normal); Ketones Urine 3+ (Negative); Leukocyte Esterase Urine Negative (Negative); Nitrate Urine Negative (Negative); Protein Urine Neg (Negative); Urine Appearance Clear (CLEAR); Urine Color Yellow (Yellow); Urobilinogen Urine Norm (Negative); pH Urine 5 (5-7)
[2021-05-28 10:29] LABS: Add Urine Culture? No; Bacteria Urine TRACE /hpf; RBC Urine 0-4 /hpf (0-2); Squamous Epithelial Cell Urine 15-25 /hpf (0-5); WBC Urine 15-25 /hpf (0-5)
--- NOTE | 2021-05-28 19:01 | P.DS_ITS ---
Discharge Providers Date of Admission: 05/27/21 21:49 Date of Discharge: May 28, 2021 Attending Provider at Admission: Alesha Zavala MD Attending Provider at Discharge: Alesha Zavala MD Primary Care Provider: Darlene Arcos MD Diagnoses at Discharge Discharge Diagnosis (1) Ureterolithiasis during in third trimester: Status: Acute Reason for Visit Reason for Visit: kidney issues Hospital Course Hospital Course This is a 21-year-old at 32 weeks gestation who presented to labor and delivery with intractable left flank pain. She was admitted and started on IV fluids and pain medications. Renal ultrasound did not reveal much so she u nderwent MRI. No visible stone was identified. Due to her amount of pain it was suspected that she had a stone somewhere. Around 171 she passed a dark brown/black stone that measured about 5mm x 3mm. After that she felt much better. She was discharged home about 2 hours later. Physical Exam Narrative: Alert and oriented, tired appearing but more comfortable appearing. Left flank minimally tender. Discharge Data Studies Completed and Pending Completed Studies During Hospitalization Category Date Time Status MR abdomen wo con [id number] Routine MRI 05/28/21 09:39 Completed US renal BI* [id number] Stat Ultrasound 05/28/21 01:14 Completed Radiology Impressions Renal Ultrasound 05/28/21 01:14 IMPRESSION: 1. Mild bilateral hydronephrosis, similar to slightly more prominent than on the recent exam. See above discussion. 2. Other details/findings discussed above. Abdomen MRI 05/28/21 09:39 IMPRESSION: Somewhat limited examination due to motion artifact and lack of breath-hold technique 1. Symmetric moderate bilateral hydronephrosis with ureterectasis extending into the pelvis likely due to pelvic ureteral compression from enlarged uterus. No visualized obstructing calculi. 2. No perinephric edema or perinephric inflammatory stranding. 3. Appendix is not visualized but no evidence of acute appendicitis. 4. Gravid uterus with pelvic varicosities. 5. Fluid distended gallbladder otherwise normal in appearance. No visualized cholelithiasis 6. Umbilical cord loosely draped across the LEFT neck and crosses in front of the fetus. Recommend interval follow-up with ultrasound. Laboratory Results WBC 14.6 10^3/uL (4.0-10.0) H 05/27/21 21:27 RBC 3.45 10^6/uL (4.1-5.3) L 05/27/21: Hgb 11.2 g/dL (11.5-15.3) L 05/27/21: Hct 33.9 % (37.0-47.0) L 05/27/21: MCV 98.3 fl (81-99) 05/27/21: MCH 32.5 pg (28.0-34.0) 05/27/21: MCHC 33.0 g/dL (30.0-36.0) 05/27/21: RDW 13.6 % (12.1-15.1) 05/27/21: Plt Count 216 10^3/cmm (130-400) 05/27/21: MPV 9.7 fL (7.4-10.4) 05/27/21: Neut % (Auto) 82.2 % 05/27/21: Lymph % (Auto) 6.5 % 05/27/21: Garfield % (Auto) 9.9 % 05/27/21: Eos % (Auto) 0.6 % 05/27/21: Baso % (Auto) 0.3 % 05/27/21: Neut # (Auto) 11.97 10^3/uL (1.8-7.7) H 05/27/21: Lymph # (Auto) 1.0 10^3/uL (0.8-4.8) 05/27/21: Garfield # (Auto) 1.5 10^3/uL (0.2-0.9) H 05/27/21: Eos # (Auto) 0.1 10^3/uL (0.0-0.8) 05/27/21: Baso # (Auto) 0.1 10^3/uL (0.0-0.1) 05/27/21: Nucleated RBC % (auto) 0 % 05/27/21 Nucleated RBCs # 0.0 /100WBC 05/27/21: Sodium 137 mmol/L (136-145) 05/27/21: Potassium 3.8 mmol/L (3.5-5.1) 05/27/21 21: Chloride 105 mmol/L (98-107) 05/27/21 21: Carbon Dioxide 17 mmol/L (22-29) L 05/27/21 21: Anion Gap 18.8 (5-19) 05/27/21 21:27 BUN 4 mg/dL (6-20) L 05/27/21 21: Creatinine 0.4 mg/dL (0.5-0.9) L 05/27/21: GFR Calculation 199.6 mL/min (90-130) H 05/27/21 21: Glucose 113 mg/dL (65-115) 05/27/21: Calculated Osmolality 282 mOsm/kg (285-295) L 05/27/21: Calcium 9.1 mg/dL (8.5-10.5) 05/27/21: Total Bilirubin 1.3 mg/dL (0.15-1.2) H 05/27/21: AST 19 U/L (0-32) 05/27/21 21: ALT 15 U/L (0-33) 05/27/21 21: Alkaline Phosphatase 151 IU/L (35-105) H 05/27/21 21: Total Protein 6.3 g/dL (6.6-8.7) L 05/27/21 21: Albumin 3.7 g/dL (3.5-5.2) 05/27/21 21: Globulin 2.6 g/dL (1.3-4.6) 05/27/21: Urine Color Yellow (Yellow) 05/28/21 09:20 Urine Appearance Clear (CLEAR) 05/28/21 09:20 Urine pH 5 (5-7) 05/28/21 09:20 Ur Specific Monroe 1.020 (1.005-1.030) 05/28/21 09:20 Urine Protein Neg (Negative) 05/28/21 09:20 Urine Glucose (UA) Norm (Normal) 05/28/21 09:20 Urine Ketones 3+ (Negative) H 05/28/21 09:20 Urine Blood Neg (Negative) 05/28/21 09:20 Urine Nitrate Negative (Negative) 05/28/21 09:20 Urine Bilirubin Neg (Negative) 05/28/21 09:20 Urine Urobilinogen Norm mg/dL (Negative) 05/28/21 09:20 Ur Leukocyte Esterase Negative (Negative) 05/28/21 09:20 Urine RBC 0-4 /hpf (0-2) H 05/28/21 09:20 Urine WBC 15-25 /hpf (0-5) H 05/28/21 09:20 Ur Squamous Epith Cells 15-25 /hpf (0-5) H 05/28/21 09:20 Amorphous Sediment Not Reportable 05/28/21 09:20 Urine Bacteria Trace /hpf (NONE) 05/28/21 09:20 Vitals Last Vital Signs Temp 97.2 F L 05/28/21 15:00 Pulse 131 H 05/28/21 18:27 Resp 20 H 05/28/21 12:00 BP 122/57 05/28/21 18:27 Pulse Ox 95 05/28/21 03:07 Discharge Plan Discharge Patient Disposition: Home Condition: Stable Prescriptions: Continued 28-800 mg-mcg Tablet 1 tab PO DAILY 0RF Tylenol 500 mg PO PRN PRN (Reason: Pain) 0RF Discharge Orders: Discharge Order (Routine); Ordered 05/28/21 Ordered By: Alesha Zavala Referrals: Alesha Zavala MD [Physician] - (as previously scheduled) Discharge Diet: Usual diet Discharge Activity: Resume usual activity Activity Restrictions/Additional Instructions: Drink plenty of water. Avoid tea, soda, caffeine. Discharge Attestations Time Spent in Discharge Care*: less than 30 min Status at Discharge: Cognitive status at discharge: cognitively intact , Behavioral status at discharge: cooperative , Quality Metrics Clinical Quality Measures [ No reported AMI, CVA or VTE this stay] Coding Level of Care Code Acute Chg FW DC note Diagnoses Ureterolithiasis during in third trimester O99.891; N20.1
== END 2021-05-28 19:50 | disposition home or self-care (01) ==
LOC: OPOB 05-28 07:57
PROVIDERS: Admitting Provider Family Medicine; PCP Family Medicine; Visit Provider Family Medicine
DX: O26.833 Pregnancy related renal disease, third trimester (principal); Z3A.32 32 weeks gestation of pregnancy; N20.1 Calculus of ureter; N13.30 Unspecified hydronephrosis
CPT/HCPCS: 36415; 59025; 74181; 76770; 80053; 81001; 82365; 85025; 87491; 87591; 88300; 96372; 99211; G0378; J0696; J2270; J2405; J2550; J3105

== ENCOUNTER 2021-07-25 06:41 | Inpatient (IN) | payer OTHER, BC, SELFPAY ==
[2021-07-25] VITALS (84 sets, daily range): BP systolic 98–158; BP diastolic 52–99; PULSE 87–141; RESP 16–18; TEMP 36.2–37.5; O2SAT 96–99; BMI 30.2
[2021-07-25 07:46] LABS: Basophils % 0.2 %; Eosinophils # 0.2 10^3/uL (0.0-0.8); Eosinophils % 1.5 %; Hematocrit 35.6 % (37.0-47.0); Hemoglobin 11.8 g/dL (11.5-15.3); Lymphocytes # 2.6 10^3/uL (0.8-4.8); Lymphocytes % 24.9 %; Mean Corpuscular HGB Conc 33.1 g/dL (30.0-36.0); Mean Corpuscular Volume 96.5 fl (81-99); Mean Platelet Volume 9.9 fL (7.4-10.4); Monocytes % 9.1 %; Neutrophils # 6.78 10^3/uL (1.8-7.7); Nucleated Red Blood Cells % 0 %; Platelet Count 273 10^3/cmm (130-400); Red Blood Count 3.69 10^6/uL (4.1-5.3); Red Cell Distribution Width 14.4 % (12.1-15.1); White Blood Count 10.6 10^3/uL (4.0-10.0)
[2021-07-25] MEDS: dextrose 5%-lactated ringers 1,000 ML 999 ML IV (08:04)
[2021-07-25] MEDS: ampicillin 2,000 MG in sodium chloride 0.9% (plus) 50 ML 100 MG IV (08:04)
[2021-07-25] MEDS: oxytocin 30 UNIT/500 ML BAG IV (08:15)
--- NOTE | 2021-07-25 11:12 | PM.OPHPUD ---
Labor & Delivery H&P Update Date of Procedure: July 25, 2021 Date H&P Performed: 07/25/21 Admission Diagnosis: IUP at 41 weeks 1 day gestation Polyhydramnios Large for gestational age Group B strep positive Desired surgical sterilization Preop diagnosis: IUP Planned procedure: Expectant management of induction of labor
[2021-07-25] MEDS: lactated ringers 1,000 ML 999 ML IV ×2 (12:16→13:46)
[2021-07-25] MEDS: fentaNYL 50 mcg/mL INJ 2mL IVP (12:17)
[2021-07-25] MEDS: ampicillin 1,000 MG in sodium chloride 0.9% (plus) 50 ML 100 MG IV ×3 (13:48→22:15)
--- NOTE | 2021-07-25 13:53 | ANES.PREANE2 ---
Pre-Anesthetic Assessment Height/Weight: Height 1.55 m Weight 72.575 kg Temp Pulse Resp BP Pulse Ox 97.9 F 112 H 18 128/76 97 07/25/21 13:00 07/25/21 13:50 07/25/21 12:17 07/25/21 13:50 07/25/21 13:48 Preop Diagnosis: IUP epidural Was Beta Daisy taken within 24 hours: N/A Was Clonidine taken within 24 hours: N/A Last Intake: 08:00 Social No alcohol and No tobacco Exam alert, oriented x 3, clear to auscultation bilaterally and regular rate & rhythm Airway Submandibular: within normal limits Cervical ROM: within normal limits Mallampati: Class I Pulmonary Asthma CV/HEM None reported None reported Hepatic None reported GI None reported Metabolic None reported Musc/skel None reported Neuropsych None reported Anesthetic Plan ASA status: 2 Anesthesia: Regional (specify below) (epidural) Medications/Allergies Home Medications Medication Instructions Recorded Confirmed Last Taken Type vit no.133-ferrous 1 tab PO DAILY 04/09/19 07/25/21 07/24/21 History fumarate 28 mg-folic acid 800 mcg tablet () Tylenol 500 mg PO PRN PRN 05/26/21 07/25/21 05/27/21 20:00 History Allergies Allergy/AdvReac Type Severity Reaction Status Date / Time No Known Allergies Allergy Verified 07/25/21 09:25 Current Medications Generic Name Dose Route Start Last Admin Trade Name Freq PRN Reason Stop Dose Admin Fentanyl 25 - 100 mcg 07/25/21 07:35 07/25/21 12:17 Fentanyl 50 Mcg/Ml Inj 2ml IVP 25 mcg Q1H PRN Administration SEVERE PAIN Dextrose/Lactated Ringer's 1,000 mls @ 125 mls/hr 07/25/21 07:45 07/25/21 12:16 Dextrose 5%-Lactated Ringers IV 0 mls/hr .Q8H JOLEEN Infusion Ampicillin Sodium 1,000 mg/ 50 mls @ 100 mls/hr 07/25/21 11:45 07/25/21 13:48 Sodium Chloride IV 100 mls/hr Q4H JOLEEN Administration Protocol Ropivacaine 200 mg in 100 mls @ 13 mls/hr 07/25/21 07:45 07/25/21 13:47 Naropin Premix EPIDURAL 10 mls/hr .Q7H42M JOLEEN Administration Lactated Ringer's 1,000 mls @ 999 mls/hr 07/25/21 07:37 07/25/21 13:46 Lactated Ringers IV 999 mls/hr .Q1H1M PRN Administration See label comments Oxytocin 30 unit in 500 mls @ 1 mls/hr 07/25/21 07:45 07/25/21 12:54 Pitocin IV 7 milliunit/min .Q24H JOLEEN 7 mls/hr Titration Protocol 1 MILLIUNIT/MIN PFSH Anesthesia Medical History (Updated 05/29/21 @ 00:01 by ) Group B streptococcal bacteriuria Family History (Updated 04/09/19 @ 23:01 by Darlene Arcos MD) Mother Lung disease Asthma Family/Other Spina bifida Social History (Updated 04/09/19 @ 22:50 by Darlene Arcos MD) Smoking and tobacco status: never smoked Second hand smoke exposure: No Alcohol intake: never Adopted: No Caregiver/support person: Yes Lives independently: Yes Household members: significant other Marital status: Single Number of children: 0 Number of grandchildren: 0 Highest education level completed: High School Graduate Current occupational status: employed Current occupation: Part-time [employer] Female Reproductive History : 2 Data Anesthesia : 07/25/21 07:30 Short CBC 07/25/21 Range/Units 07:30 WBC 10.6 H (4.0-10.0) 10^3/uL Hgb 11.8 (11.5-15.3) g/dL Hct 35.6 L (37.0-47.0) % MCV 96.5 (81-99) fl Plt Count 273 (130-400) 10^3/cmm Neut % (Auto) 64.0 % Neut # (Auto) 6.78 (1.8-7.7) 10^3/uL Cardiac Studies: No Data to Display
--- NOTE | 2021-07-25 13:55 | ANES.PROC ---
Anesthesia Procedures Procedure/Date: 07/25/21 Epidural: Time Out Performed: Yes Consents Signed: Procedure Consent and NPO Consent Consent: requested by attending/covering physician, from patient, risks and benefits reviewed and patient agrees to proceed Lumbar Level: L3-L4 Epidural position: sitting Epidural procedure: sterile prep of area (betadine), 1% lidocaine to numb the area (3ml), 18 g needle, negative for paresthesia passed, neg for paresthesia, test dose given, 1.5% xylocaine 1:200k epi (5ml), 0.2% Ropivacaine bolus ml (5ml), placed PCEA, no systemic response, sterile dressing applied, L.U.D. no apparent complications and 0.2% Ropiavacaine @ mls/hr (10ml/hr)
[2021-07-25] MEDS: ondansetron 2 mg/ML SDV 2 mL 4 MG IVP (18:42)
--- NOTE | 2021-07-25 21:46 | ANES.PROC ---
Anesthesia Procedures Procedure/Date: 07/25/21 Epidural bolus Procedure Narrative: Pt c/o pain in hips abd and low pelvis. Pt given 8ml 0.25% Marcaine MPF and Fentanyl 100mcg via epidural. Pt tolerated well and will continue to monitor.
[2021-07-25] MEDS: dextrose 5%-lactated ringers 1,000 ML 125 ML IV (22:55)
[2021-07-26] VITALS (42 sets, daily range): BP systolic 93–166; BP diastolic 49–85; PULSE 92–136; RESP 15–18; TEMP 36.7–37.2; O2SAT 92–99
[2021-07-26] MEDS: fentaNYL 50 mcg/mL INJ 2mL IVP (00:02)
--- NOTE | 2021-07-26 00:20 | ANES.PROC ---
Anesthesia Procedures Procedure/Date: 07/26/21 Epidural bolus Procedure Narrative: Pt C/o right hip pain. Pt given Fentanyl 100mcg MPF and Bupivacaine 0.25% 8ml MPF via epidural. Pt states pain much improved for next contraction.
[2021-07-26] MEDS: ampicillin 1,000 MG in sodium chloride 0.9% (plus) 50 ML 100 MG IV (03:16)
[2021-07-26] MEDS: citric acid-sodium citrate 30 mL UDC PO (03:25)
[2021-07-26] MEDS: metoclopramide 5 mg/mL SDV 2 mL 10 MG IVP (03:25)
[2021-07-26] MEDS: famotidine 20 mg/2 mL INJ IVP (03:25)
[2021-07-26] MEDS: lactated ringers 1,000 ML 999 ML IV (03:28)
--- NOTE | 2021-07-26 04:54 | P.OP_ITS ---
Operative Report Date of procedure: July 26, 2021 Pre-op diagnosis: Failure to progress IUP at 41 weeks 2 days gestation Procedure done: Primary low transverse section Bilateral tubal ligation Specimens removed/disposition: Vertex male weight 4260 g, 9 pounds 6 ounces Apgars 8 and 9 Surgeon: Alesha Zavala MD Estimated blood loss: 800 mL IV fluids: 1 L Urine output: 250 mL Complications: None Procedure: The patient was taken to the OR and her epidural was dosed. She was prepped and draped in normal sterile fashion in dorsal supine position with a left lateral tilt. Upon testing it was found that the epidural was not working for effective pain control so the patient was then put under general anesthesia. A Pfannenstiel skin incision was made and carried through to the underlying layer of fascia sharply. There were several brisk subcutaneous bleeders that were grasped with a hemostat and coagulated with the Bovie. The fascia was then grasped with Ariadna clamps and the underlying rectus muscles were dissected off taking care to avoid injury to the underlying tissue. The peritoneum was then entered bluntly using a hemostat. The incision site was manually stretched. The bladder blade was inserted and the vesicouterine peritoneum was identified and entered sharply using the Metzenbaums. The bladder flap was created digitally and the bladder blade was reinserted. Uterine incision was made in a transverse fashion in the lower uterine segment. Amniotic rupture of membranes was performed sharply and meconium stained fluid was present. The sent and body was delivered simultaneously and atraumatically with bulb suction of the mouth and nares at delivery. The cord was clamped and cut and the infant was handed to the waiting pediatric nurse. Cord blood was obtained. The placenta was then delivered grossly intact and normal to inspection. The uterus was exteriorized from the abdomen and a dry sponge was used to clear the uterus of clots and debris.The uterine incision was repaired using 0 chromic in a running locked fashion. A second layer of the same suture was used in an imbricating manner. The left fallopian tube was grasped with a [place] and a proximal portion of the tube was ligated and excised. The cut portions of the tube were coagulated using the Bovie. The right fallopian tube was then grasped with a [place] and a proximal portion of the tube was ligated and excised. The cut portions of the tube were coagulated using the Bovie. The uterus was then gently returned to the abdomen. Irrigation was used to clear the gutters of clots and debris and the uterine incision was inspected for hemostasis. The peritoneum was then reapproximated using 4-0 Vicryl in a running fashion. The subfascial tissue was inspected for hemostasis and the fascia was then reapproximated using 0 Vicryl in a running fashion. The subcutaneous tissue was irrigated and a few small bleeders were coagulated using the Bovie. The subcutaneous tissue was then reapproximated using 4-0 Vicryl in a running fashion. The skin was then reapproximated using 4-0 Vicryl in a running fashion on a Silvano needle. Steri- Strips and a pressure bandage were applied and patient went to recovery in good condition. Sponge instrument and needle counts were correct
[2021-07-26] MEDS: dextrose 5%-lactated ringers 1,000 ML 125 ML IV ×2 (07:46→15:53)
[2021-07-26] MEDS: HYDROcodone-acetaminophen 5-325 mg Tablet PO ×4 (07:46→23:38)
--- NOTE | 2021-07-26 08:13 | ANE.PACU2 ---
Inpatient post-anesthesia follow up: Airway intact: Yes Vital signs: Temperature 98.0 F Pulse Rate 110 Respiratory Rate 18 Blood Pressure 126/64 Pulse Oximetry 94 Oxygen Delivery Me thod Room Air Oxygen Flow Rate Fraction of Inspir ed Oxygen Hydration adequate: Yes Nausea and vomiting: No Pain level: 2 Mental status: Baseline
[2021-07-26] MEDS: ketorolac 30 mg/mL INJ IVP ×2 (13:46→20:16)
[2021-07-26 17:30] LABS: Hematocrit 26.6 % (37.0-47.0); Hemoglobin 8.7 g/dL (11.5-15.3); Mean Corpuscular HGB Conc 32.7 g/dL (30.0-36.0); Mean Corpuscular Hemoglobin 32.5 pg (28.0-34.0); Mean Corpuscular Volume 99.3 fl (81-99); Mean Platelet Volume 9.9 fL (7.4-10.4); Platelet Count 234 10^3/cmm (130-400); Red Blood Count 2.68 10^6/uL (4.1-5.3); White Blood Count 19.9 10^3/uL (4.0-10.0)
[2021-07-26] MEDS: docusate sodium 100 mg Capsule PO (17:55)
[2021-07-26] MEDS: ferrous sulfate EC 325 mg Tablet PO (17:55)
[2021-07-27] MEDS: dextrose 5%-lactated ringers 1,000 ML 125 ML IV (00:06)
[2021-07-27] MEDS: ketorolac 30 mg/mL INJ IVP (02:28)
[2021-07-27] MEDS: HYDROcodone-acetaminophen 5-325 mg Tablet PO ×4 (04:08→19:15)
[2021-07-27] MEDS: lanolin oint 7 gm 1 APPLIC TOPICAL (08:54)
[2021-07-27] MEDS: prenatal vitamin Capsule 1 CAP PO (08:54)
[2021-07-27] MEDS: ferrous sulfate EC 325 mg Tablet PO (08:54)
[2021-07-27] MEDS: docusate sodium 100 mg Capsule PO (08:54)
[2021-07-27 10:00] VITALS: BP 105/70; PULSE 98; TEMP 37
--- NOTE | 2021-07-27 12:29 | P.PN_ITS ---
Subjective Subjective: She has been up to ambulate, she is tolerating a regular diet and passing flatus. She is a little bit more sore today but that is to be expected as the Duramorph has worn off. Vitals/I&O/Wt Last Vital Signs Temp 98.1 F 07/26/21 22:00 Pulse 101 H 07/26/21 22:00 Resp 15 07/26/21 20:00 BP 104/69 07/26/21 22:00 Pulse Ox 99 07/26/21 20:00 07/26/21 07/27/21 07/27/21 22:59 06:59 14:59 Intake Total 1000 / 2000 1000 / 3000 Output Total 700 / 2075 400 / 2475 Balance 300 / -75 600 / 525 Physical Exam Narrative: Alert and oriented, sitting up in bed holding baby, heart regular rate and rhythm, lungs clear to auscultation bilaterally, abdomen is soft with appropriate postoperative tenderness, incision is clean dry and intact with Steri-Strips in place, extremities have some edema but no calf tenderness. Urinary Catheter Management: Mcgregor: Cath Placed During This Visit: yes Reason for Continuing Indwelling Catheter: Required Immobilization for Trauma or Surgery or Anesthesia Urinary Catheter Date of Insertion: 07/25/21 Urinary Catheter Time of Insertion: 14:30 Data : 07/26/21 17:25 A&P Assessment and plan (1) Status post primary low transverse section: Continue routine postop and care. Likely discharge home tomorrow Status: Acute (2) Status post tubal ligation: Status: Acute Attestations Medical Necessity Statement*: Routine postoperative and care Coding Level of Care Code Acute Inbound [employer] Log[employer] Specialist for Chg Fwd Diagnoses Status post primary low transverse section Z98.891 Status post tubal ligation Z98.51
[2021-07-27 15:23] VITALS: BP 99/70; PULSE 102; TEMP 36.7
[2021-07-27] MEDS: ibuprofen 800 mg tablet PO ×2 (15:24→21:14)
[2021-07-27 22:00] VITALS: BP 113/74; PULSE 99; RESP 15; TEMP 36.7
[2021-07-28] MEDS: HYDROcodone-acetaminophen 5-325 mg Tablet PO ×4 (01:23→15:45)
[2021-07-28 04:35] VITALS: BP 122/78; PULSE 103; TEMP 36.7
[2021-07-28] MEDS: ferrous sulfate EC 325 mg Tablet PO (08:18)
[2021-07-28] MEDS: prenatal vitamin Capsule 1 CAP PO (08:18)
[2021-07-28] MEDS: docusate sodium 100 mg Capsule PO (08:18)
[2021-07-28] MEDS: ibuprofen 800 mg tablet PO ×2 (08:18→15:45)
[2021-07-28 09:24] VITALS: BP 121/81; PULSE 92; RESP 18; TEMP 37; O2SAT 97
--- NOTE | 2021-07-28 12:35 | P.DS_ITS ---
Discharge Providers Date of Admission: 07/25/21 06:41 Date of Discharge: July 28, 2021 Attending Provider at Admission: Alesha Zavala MD Attending Provider at Discharge: Alesha Zavala MD Primary Care Provider: Darlene Arcos MD Diagnoses at Discharge Discharge Diagnosis (1) Status post primary low transverse section: Status: Acute (2) Status post tubal ligation: Status: Acute Reason for Visit Reason for Visit: IOL Hospital Course Hospital Course This is a 21-year-old G2 now P2 who underwent a primary section for failure to progress. She was being induced at 41 weeks 2 days gestation. She had a healthy male . She also had a bilateral tubal ligation. She did well postoperatively. She was ambulating, tolerating a regular diet, had good pain control and was comfortable with discharge home. Physical Exam Narrative: Alert and oriented, sitting up in bed, regular rate and rhythm, positive flow murmur, lungs clear to auscultation bilaterally, abdomen is soft with appropriate postoperative tenderness, incision is clean dry and intact, extremities have no calf tenderness and only trace edema Urinary Catheter Management: Mcgregor: Cath Placed During This Visit: yes, but has since been removed by the nurse Reason for Continuing Indwelling Catheter: Required Immobilization for Trauma or Surgery or Anesthesia Urinary Catheter Date of Insertion: 07/25/21 Urinary Catheter Time of Insertion: 14:30 Date Urinary Catheter Removed: 07/27/21 Time Urinary Catheter Discontinued: 06:25 Discharge Data Studies Completed and Pending Laboratory Results WBC 19.9 10^3/uL (4.0-10.0) H 07/26/21 17:25 RBC 2.68 10^6/uL (4.1-5.3) L 07/26/21 17:25 Hgb 8.7 g/dL (11.5-15.3) L 07/26/21 17:25 Hct 26.6 % (37.0-47.0) L 07/26/21 17:25 MCV 99.3 fl (81-99) H 07/26/21 17:25 MCH 32.5 pg (28.0-34.0) 07/26/21 17:25 MCHC 32.7 g/dL (30.0-36.0) 07/26/21 17:25 RDW 15.0 % (12.1-15.1) 07/26/21 17:25 Plt Count 234 10^3/cmm (130-400) 07/26/21 17:25 MPV 9.9 fL (7.4-10.4) 07/26/21 17:25 Neut % (Auto) 64.0 % 07/25/21 07:30 Lymph % (Auto) 24.9 % 07/25/21 07:30 [place] % (Auto) 9.1 % 07/25/21 07:30 Eos % (Auto) 1.5 % 07/25/21 07:30 Baso % (Auto) 0.2 % 07/25/21 07:30 Neut # (Auto) 6.78 10^3/uL (1.8-7.7) 07/25/21 07:30 Lymph # (Auto) 2.6 10^3/uL (0.8-4.8) 07/25/21 07:30 Ellis # (Auto) 1.0 10^3/uL (0.2-0.9) H 07/25/21 07:30 Eos # (Auto) 0.2 10^3/uL (0.0-0.8) 07/25/21 07:30 Baso # (Auto) 0.0 10^3/uL (0.0-0.1) 07/25/21 07:30 Nucleated RBC % (auto) 0 % 07/25/21 07:30 Nucleated RBCs # 0.0 /100WBC 07/25/21 07:30 Vitals Last Vital Signs Temp 98.6 F 07/28/21 09:24 Pulse 92 07/28/21 09:24 Resp 18 07/28/21 09:24 BP 121/81 07/28/21 09:24 Pulse Ox 97 07/28/21 09:24 Discharge Plan Discharge Patient Disposition: Home Condition: Stable Prescriptions: New ibuprofen 800 mg Tablet 800 mg PO TID PRN (Reason: Abdominal Discomfort) Qty: 30 0RF hydrocodone-acetaminophen 5-325 mg Tablet 1 - 2 tab PO Q4H PRN (Reason: Moderate To Severe Pain) Qty: 12 0RF docusate sodium 100 mg Capsule 100 mg PO BID Qty: 60 0RF Continued 28-800 mg-mcg Tablet 1 tab PO DAILY 0RF Tylenol 500 mg PO PRN PRN (Reason: Pain) 0RF Discharge Orders: Discharge Order (Routine); Ordered 07/28/21 Ordered By: Alesha Zavala Referrals: Alesha Zavala MD [Physician] - 2 weeks Discharge Diet: Usual diet Discharge Activity: Limit activity as instructed Patient Instructions: Depression (DC), Expression, Collection and Storage of Breast Milk (DC), Bleeding (DC), Preeclampsia and Eclampsia After Delivery (GEN), OB - Jackie/Sally, OB Discharge Report, OB Food/Drug Interaction Guide, Opioid Safety, OB Home Care Discharge Attestations Time Spent in Discharge Care*: less than 30 min Status at Discharge: Cognitive status at discharge: cognitively intact , B ehavioral status at discharge: cooperative , Quality Metrics Clinical Quality Measures [ No reported AMI, CVA or VTE this stay] Coding Level of Care Code Acute Chg FW DC note Diagnoses Status post primary low transverse section Z98.891 Status post tubal ligation Z98.51
[2021-07-28 16:39] VITALS: BP 126/88; PULSE 102; RESP 16; TEMP 36.9; O2SAT 97
== END 2021-07-28 16:39 | disposition home or self-care (01) | DRG 784 ==
LOC: OPOB 06:41 → OBGYN 13:35
PROVIDERS: Admitting Provider Family Medicine; PCP Family Medicine; Visit Provider Family Medicine
PROC: 10D00Z1 Extraction of Products of Conception, Low, Open Approach (ICD-10-PCS; CPT 59514; principal; 2021-07-26 03:30)
DX: O61.0 Failed medical induction of labor (principal); O41.03X0 Oligohydramnios, third trimester, not applicable or unspecified; Z3A.41 41 weeks gestation of pregnancy; Z37.0 Single live birth; O48.0 Post-term pregnancy; O36.63X0 Maternal care for excessive fetal growth, third trimester, not applicable or unspecified; O99.824 Streptococcus B carrier state complicating childbirth; O77.0 Labor and delivery complicated by meconium in amniotic fluid; Z30.2 Encounter for sterilization
CPT/HCPCS: 36415; 51702; 59025; 85025; 85027; 88302; J0290; J0330; J0690; J1100; J1885; J2274; J2370; J2405; J2704; J2765; J2795; J3010; J3490; J7030

== ENCOUNTER → 2023-03-24 11:00 | Outpatient (BNVA) | payer SELFPAY | PROVIDERS: PCP Family Medicine; Visit Provider Nurse Practitioner Women's Health | DX: Z01.419 Encounter for gynecological examination (general) (routine) without abnormal findings (principal); Z13.29 Encounter for screening for other suspected endocrine disorder | CPT/HCPCS: 84443; 88175 ==

== ENCOUNTER 2023-11-29 18:10 | Emergency (ER) | payer BC, SELFPAY ==
[2023-11-29] VITALS (7 sets, daily range): BP systolic 100–118; BP diastolic 57–76; PULSE 105–120; RESP 16; TEMP 36.9; O2SAT 96–100; BMI 28.1
[2023-11-29 19:15] LABS: Basophils % 0.4 %; Eosinophils % 0.3 %; Hematocrit 44.2 % (36-47); Lymphocytes # 1.1 10^3/uL (0.8-4.8); Lymphocytes % 10.4 %; Mean Corpuscular HGB Conc 33.3 g/dL (30-55); Mean Corpuscular Volume 93.2 fl (85-98); Mean Platelet Volume 9.5 fL (7.4-10.4); Monocytes # 0.6 10^3/uL (0.2-0.9); Monocytes % 5.6 %; Neutrophils # 8.85 10^3/uL (1.8-7.7); Nucleated Red Blood Cells % 0 %; Platelet Count 267 10^3/cmm (157-399); Red Blood Count 4.74 10^6/uL (3.85-5.65); Red Cell Distribution Width 12.1 % (12.1-15.1); White Blood Count 10.66 10^3/uL (3.29-11.43)
[2023-11-29 19:27] LABS: Alanine Aminotransferase 16 U/L (0-33); Alkaline Phosphatase 132 U/L (35-105); Anion Gap 18.8 (5-19); Aspartate Amino Transferase 17 U/L (0-32); Blood Urea Nitrogen 11 mg/dL (6-20); Calcium 9.7 mg/dL (8.5-10.5); Carbon Dioxide 19 mmol/L (22-29); Chloride 103 mmol/L (98-107); Creatinine Clr Calc Pharmacy 152.5945; Globulin 3.5 g/dL (1.3-4.6); Glomerular Filtration Rate 151.6 mL/min (90-130); Glucose 100 mg/dL (65-115); Lipase 25 U/L (13-60); Osmolality Calculated 283 mOsm/kg (285-295); Potassium 3.8 mmol/L (3.5-5.1); Sodium 137 mmol/L (136-145); Total Bilirubin 0.8 mg/dL (0.15-1.2); Total Protein 8.5 g/dL (6.6-8.7)
[2023-11-29 19:34] LABS: Bilirubin Urine Negative (Negative); Blood Urine 2+ (Negative); Glucose Urine UA Negative (Normal); Ketones Urine 3+ (Negative); Leukocyte Esterase Urine Negative (Negative); Nitrate Urine Negative (Negative); Protein Urine Trace (Negative); Specific Gravity, Urine 1.023 (1.005-1.030); Urine Appearance Clear (CLEAR); Urine Color Yellow (Yellow); pH Urine 5.5 (5-7)
[2023-11-29 19:36] LABS: HCG Qualitative Urine. Negative (Negative)
--- NOTE | 2023-11-29 19:36 | ED_ITS ---
HPI - Nausea/Vomiting/Diarrhea 2 General: Chief complaint: Nausea/Vomiting/Diarrhea Stated complaint: abd pain Time Seen by Provider: 11/29/23 19:14 History of Present Illness: 23-year-old female who presents to the e mergency room with nausea vomiting and diarrhea. It started a couple of days ago with diarrhea after she ate some food. Thinks she might have food poisoning. She has diffuse nonfocal abdominal pain she describes as cramping. No chest pain. Says it does hurt to breathe and in her belly. Related Data Home Medications Medication Instructions Recorded Confirmed multivitamin with minerals-folic 1 tab PO DAILY 10/29/22 03/24/23 acid 200 mcg chewable tablet (Women's Multivitamin Gummies) Previous Rx's Medication Instructions Recorded hydrocodone 5 mg-acetaminophen 325 1 tab PO Q8H PRN pain #14 tabs 11/29/23 mg tablet ondansetron 8 mg disintegrating 8 mg PO Q6H #14 tabs 11/29/23 tablet polyethylene glycol 3350 17 17 g PO DAILY #510 grams 11/29/23 gram/dose oral powder (Miralax) Allergies Allergy/AdvReac Type Severity Reaction Status Date / Time No Known Allergies Allergy Verified 03/24/23 10:06 Review of Systems 2 Narrative: Constitutional symptoms: Negative except as documented in HPI. Skin symptoms: Negative except as documented in HPI. Eye symptoms: Negative except as documented in HPI. ENMT symptoms: Negative except as documented in HPI. Respiratory symptoms: Negative except as documented in HPI. Cardiovascular symptoms: Negative except as documented in HPI. Gastrointestinal symptoms: Negative except as documented in HPI. Genitourinary symptoms: Negative except as documented in HPI. Musculoskeletal symptoms: Negative except as documented in HPI. Neurologic symptoms: Negative except as documented in HPI. Psychiatric symptoms: Negative except as documented in HPI. Endocrine symptoms: Negative except as documented in HPI. PFSH ED 2 PFSH: Medical History No pertinent past medical history neghx: htn,dm,thyroid,dvt/pe PCP: none Surgical History Status post tubal ligation (~07/26/21) performed by Sally at time of Status post primary low transverse section (~07/26/21) performed by Zavala tubal ligation performed at the same time Family History Mother Lung disease Asthma Thyroid disease Family/Other Spina bifida Grandfather Diabetes maternal Bladder cancer maternal Grandmother Diabetes maternal Thyroid disease maternal Father Hypertension Sister Thyroid disease Denies family history of Colon cancer Ovarian cancer Prostate cancer Heart disease Hyperlipidemia Breast cancer Uterine cancer Stroke Physical Exam 2 Narrative: EXAM NARRATIVE: General: Alert, no acute distress. Skin: Warm, dry. Head: Normocephalic, atraumatic. Neck: Supple, trachea midline. Eye: Extraocular movements are intact. Ears, nose, mouth and throat: Tacky oral mucosa Cardiovascular: Regular, Normal peripheral perfusion. Respiratory: Lungs are clear to auscultation, respirations are non-labored, breath sounds are equal, Symmetrical chest wall expansion. Gastrointestinal: Soft, diffuse tenderness, Non distended Musculoskeletal: Normal ROM, no deformity. Neurological: Alert and oriented, No focal neurological deficit observed. Psychiatric: Cooperative, appropriate mood & affect. Course 2 Vital Signs: Vital signs: Vital Signs Temperature 98.5 F 11/29/23 18:49 Pulse Rate 106 H 11/29/23 23:55 Respiratory Rate 16 11/29/23 23:55 Blood Pressure 111/68 11/29/23 23:55 Pulse Oximetry 100 11/29/23 23:55 Oxygen Delivery Me thod Room Air 11/29/23 18:49 MDM - Nausea/Vomiting/Diarrhea Medical Decision Making Medical decision making: Differential diagnosis for this patient with nausea and vomiting including but not limited to and based on the above HPI, review of systems and physical exam: Urinary tract infection. Appendicitis. Cholecystis. colitis. small bowel obstruction. crohn's flare. pancreatitis. gastritis. peptic ulcer. cyclic vomiting. Viral illness. Influenza. COVID. - Workup - labwork and imaging ordered to evaluate, rule in and rule out above pathologies. Lab Review: Laboratory results were reviewed and interpreted by myself the emergency room physician. Lab work is fairly unremarkable. No leukocytosis. No anemia. No renal failure. Urinalysis is clear for infection. Liver enzymes are normal. CT of the abdomen: Moderate gallbladder distention without any gallstones. Recommended ultrasound by radiologist. This was reviewed and interpreted by myself the emergency room physician. I also reviewed the radiology report. Ultrasound shows a distended gallbladder but no signs of acute cholecystitis I reviewed the patient's medical record. Reexamination: Patient's pain is much more controlled at this point. We discussed findings. Patient remained stable. No increased work of breathing. No altered mental status. No focal motor deficits. Assessment and plan: Gastroenteritis Dehydration ?Toradol?IV fluids?IV Zofran?IV morphine - Discharged home - Discussed findings and plan with patient. Answered any questions. - All laboratory values were reviewed and interpreted personally by myself, the ER physician - All imaging was reviewed and interpreted personally by myself, the ER physician. - Evaluation and treatment of this problem were appropriate in the emergency setting Lab Data 11/29/23 18:40 11/29/23 18:40 Radiology Impressions Abdomen/Pelvis CT 11/29/23 19:47 IMPRESSION: 1. Moderate gallbladder distension without radiodense gallstones. Consider ultrasound or HIDA scan for further evaluation. 2. Additional findings, as above. Gallbladder Ultrasound 11/29/23 21:15 IMPRESSION: Distended gallbladder is nonspecific and may be related to a fasted state. There are no convincing findings of acute cholecystitis on this exam. If there is a continued clinical concern, consider further evaluation with nuclear medicine cholescintigraphy. Laboratory Results WBC 10.66 10^3/uL (3.29-11.43) 11/29/23 18:40 RBC 4.74 10^6/uL (3.85-5.65) 11/29/23 18:40 Hgb 14.70 g/dL (11.27-16.99) 11/29/23 18:40 Hct 44.2 % (36-47) 11/29/23 18:40 MCV 93.2 fl (85-98) 11/29/23 18:40 MCH 31.0 pg (27-33) 11/29/23 18:40 MCHC 33.3 g/dL (30-55) 11/29/23 18:40 RDW 12.1 % (12.1-15.1) 11/29/23 18:40 Plt Count 267 10^3/cmm (157-399) 11/29/23 18:40 MPV 9.5 fL (7.4-10.4) 11/29/23 18:40 Neut % (Auto) 83.0 % 11/29/23 18:40 Lymph % (Auto) 10.4 % 11/29/23 18:40 [place] % (Auto) 5.6 % 11/29/23 18:40 Eos % (Auto) 0.3 % 11/29/23 18:40 Baso % (Auto) 0.4 % 11/29/23 18:40 Neut # (Auto) 8.85 10^3/uL (1.8-7.7) H 11/29/23 18:40 Lymph # (Auto) 1.1 10^3/uL (0.8-4.8) 11/29/23 18:40 [place] # (Auto) 0.6 10^3/uL (0.2-0.9) 11/29/23 18:40 Eos # (Auto) 0.0 10^3/uL (0.0-0.8) 11/29/23 18:40 Baso # (Auto) 0.0 10^3/uL (0.0-0.1) 11/29/23 18:40 Nucleated RBC % (auto) 0 % 11/29/23 18:40 Nucleated RBCs # 0.0 /100WBC 11/29/23 18:40 Sodium 137 mmol/L (136-145) 11/29/23 18:40 Potassium 3.8 mmol/L (3.5-5.1) 11/29/23 18:40 Chloride 103 mmol/L (98-107) 11/29/23 18:40 Carbon Dioxide 19 mmol/L (22-29) L 11/29/23 18:40 Anion Gap 18.8 (5-19) 11/29/23 18:40 BUN 11 mg/dL (6-20) 11/29/23 18:40 Creatinine 0.5 mg/dL (0.5-0.9) 11/29/23 18:40 GFR Calculation 151.6 mL/min (90-130) H 11/29/23 18:40 Glucose 100 mg/dL (65-115) 11/29/23 18:40 Calculated Osmolality 283 mOsm/kg (285-295) L 11/29/23 18:40 Calcium 9.7 mg/dL (8.5-10.5) 11/29/23 18:40 Total Bilirubin 0.8 mg/dL (0.15-1.2) 11/29/23 18:40 AST 17 U/L (0-32) 11/29/23 18:40 ALT 16 U/L (0-33) 11/29/23 18:40 Alkaline Phosphatase 132 U/L (35-105) H 11/29/23 18:40 Total Protein 8.5 g/dL (6.6-8.7) 11/29/23 18:40 Albumin 5.0 g/dL (3.5-5.2) 11/29/23 18:40 Globulin 3.5 g/dL (1.3-4.6) 11/29/23 18:40 Lipase 25 U/L (13-60) 11/29/23 18:40 HCG, Qual Negative (Negative) 11/29/23 19: Urine Color Yellow (Yellow) 11/29/23 19: Urine Appearance Clear (CLEAR) 11/29/23: Urine pH 5.5 (5-7) 11/29/23: Ur Specific [place] 1.023 (1.005-1.030) 11/29/23 19: Urine Protein Trace (Negative) A 11/29/23: Urine Glucose (UA) Negative (Normal) 11/29/23: Urine Ketones 3+ (Negative) H 11/29/23 19: Urine Blood 2+ (Negative) A 11/29/23: Urine Nitrate Negative (Negative) 11/29/23: Urine Bilirubin Negative (Negative) 11/29/23: Urine Urobilinogen 1.0 mg/dL (Negative) 11/29/23 19: Ur Leukocyte Esterase Negative (Negative) 11/29/23: Urine RBC 6-10 /hpf (0-2) 11/29/23: Urine WBC 0-5 /hpf (0-5) 11/29/23: Ur Squamous Epith Cells 6-10 /hpf (0-5) 11/29/23:25 Amorphous Sediment Not Reportable 11/29/23 19: Urine Bacteria None seen /hpf (NONE) 11/29/23: Hyaline Casts 4.11 /lpf 11/29/23 19:25 All radiology interpretation(s) finalized by discharge Discharge Plan Discharge Patient Disposition: Home Clinical Impression: Gastroenteritis Condition: Stable Prescriptions: New hydrocodone-acetaminophen 5-325 mg tablet 1 tab PO Q8H PRN (Reason: pain) Qty: 14 0RF Rx Instructions: Take 1/2 to 1 tab every 8 hours as needed for pain ondansetron 8 mg tablet,disintegrating 8 mg PO Q6H Qty: 14 0RF Rx Instructions: Take 1/2-1 tab every 6 hours as needed for nausea and vomiting Miralax 17 gram/dose powder 17 g PO DAILY Qty: 510 0RF Rx Instructions: Take 1 scoop daily while taking pain medications. No Action Women's Multivitamin Gummies 200 mcg tablet,chewable 1 tab PO DAILY Discharge Orders: Discharge ED (Routine); Ordered 11/29/23 Ordered By: Nikki Thakkar Discharge Diet: Usual diet Discharge Activity: Increase activity as tolerated Patient Instructions: Gastroenteritis (ED) Activity Restrictions/Additional Instructions: Thank you for choosing [facility] for your healthcare needs today. Please realize this is an emergency room and that we are providing you with a medical screening exam and this may not be complete and all inclusive of all the testing and or work up that you may need to determine your ailment or severity of your illness. You have been screened and evaluated and felt safe for discharge. Health conditions do change or evolve sometimes and as such it is important that you follow up with your Primary Doctor to be re checked, 3-5 days is a general good time frame for follow up. 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
[2023-11-29 19:39] LABS: Add Urine Microscopic? YES; Bacteria Urine None Seen /hpf; Hyaline Casts Urine 4.11 /lpf; WBC Urine 0-5 /hpf (0-5)
--- NOTE | 2023-11-29 19:47 | CTR_ITS ---
PROCEDURE INFORMATION: Exam: CT Abdomen And Pelvis With Contrast Exam date and time: 11/29/2023 7:57 PM Age: 23 years old Clinical indication: Abdominal pain; Prior surgery; Surgery date: 6+ months; Surgery type: TECHNIQUE: Imaging protocol: Computed tomography of the abdomen and pelvis with contrast. Axial, coronal and sagittal reformatted images were created and reviewed. Radiation optimization: All CT scans at this facility use at least one of these dose optimization techniques: automated exposure control; mA and/or kV adjustment per patient size (includes targeted exams where dose is matched to clinical indication); or iterative reconstruction. Contrast material: OMNI 350; Contrast volume: 100 ml; Contrast route: INTRAVENOUS (IV); COMPARISON: MR abdomen wo con [id number] 05/28/2021 10:25 AM RADIATION DOSE METRICS: Total DLP (mGy-cm): 539 FINDINGS: Pleural spaces: Focal area of nodular pleural thickening in the right lower lobe. Diaphragm: Small hiatal hernia. Liver: Unremarkable. Gallbladder and biliary ducts: Moderate gallbladder distension without radiodense gallstones. Pancreas: Unremarkable. Spleen: Unremarkable. Adrenal glands: Normal. No mass. Kidneys and ureters: No mass. No radiodense calculi. No hydronephrosis. Stomach and bowel: No bowel wall thickening. No obstruction. No pneumatosis. Appendix: Normal. Intraperitoneal space: No free fluid. No organized fluid collection. No free air. Vasculature: Unremarkable. No aneurysm. Lymph nodes: Small mesenteric lymph nodes, nonspecific in appearance. No pathologically enlarged lymph nodes. Urinary bladder: Unremarkable as visualized. Reproductive: Probable involuting left ovarian corpus luteal cyst versus dominant follicle. Bones/joints: No acute osseous abnormality. Soft tissues: Unremarkable. CT/CT abdomen pelvis w con* [id number] IMPRESSION: 1. Moderate gallbladder distension without radiodense gallstones. Consider ultrasound or HIDA scan for further evaluation. 2. Additional findings, as above.
[2023-11-29 19:49] LABS: UA Slide Review UA Slide Review Perf
[2023-11-29 19:51] LABS: Add Urine Culture? No
[2023-11-29] MEDS: ketorolac 30 mg/mL INJ IVP (19:53)
[2023-11-29] MEDS: famotidine 20 mg/2 mL INJ 40 MG IVP (19:54)
[2023-11-29] MEDS: ondansetron 2 mg/ML SDV 2 mL 4 MG IVP (19:54)
[2023-11-29] MEDS: sodium chloride 0.9% 1,000 ML 999 ML IV (19:55)
[2023-11-29] MEDS: iohexol 350 mg/mL 500 mL Btl (per mL) IV (20:00)
--- NOTE | 2023-11-29 21:15 | USR_ITS ---
PROCEDURE INFORMATION: Exam: US Abdomen, Limited; Right Upper Quadrant Exam date and time: 11/29/2023 9:19 PM Age: 23 years old Clinical indication: Abdominal pain; Epigastric; Patient HX: Follow-up CT noting distended gallbladder, no radiopaque stones. C/O n+v+d for 3 days. ; Additional info: Right upper quadrant pain, concern for cholecystitis TECHNIQUE: Imaging protocol: Real time ultrasound of the abdomen with image documentation. Limited exam focused on the right upper quadrant. COMPARISON: CT abdomen pelvis w con* [id number] 11/29/2023 7:57 PM FINDINGS: Liver: Normal. No masses. Gallbladder: Distended gallbladder with no significant wall thickening. Intraluminal sludge is noted but no definite gallstones. Negative Garcia's sign. Biliary ducts: Normal. No stones. No dilation. Pancreas: Visualized pancreas is unremarkable. Right kidney: Normal. No mass. No hydronephrosis. US/US gall bladder [id number] IMPRESSION: Distended gallbladder is nonspecific and may be related to a fasted state. There are no convincing findings of acute cholecystitis on this exam. If there is a continued clinical concern, consider further evaluation with nuclear medicine cholescintigraphy.
[2023-11-29] MEDS: morphine 4 mg/mL SDV 1 mL IVP (21:53)
== END 2023-11-29 23:58 | disposition home or self-care (01) ==
PROVIDERS: Emergency Medicine; Emergency Provider Emergency Medicine
DX: K52.9 Noninfective gastroenteritis and colitis, unspecified (principal)
CPT/HCPCS: 36415; 74177; 76705; 80053; 81001; 81025; 83690; 85025; 96361; 96374; 96375; 99285; J1885; J2270; J2405; J3490; J7030